=== PATIENT | female | born 1950 | race Caucasian/White ===

== ENCOUNTER → 2017-06-14 | Outpatient (CLI) | payer OTHER ==
--- NOTE | 2017-06-15 07:40 | MAMMOGRAPHY REPORT ---
BILATERAL DIGITAL SCREENING MAMMOGRAM WITH CAD: 06/14/2017 CLINICAL HISTORY: Routine screening. Patient has no complaints. TECHNIQUE: Bilateral CC and MLO views were obtained. Current study was also evaluated with a Compute r Aided Detection (CAD) system. COMPARISON: Comparison is made to exams dated: 06/10/2016 mammogram, 05/21/2015 mammogram, 04/30/2014 ul trasound, 04/30/2014 mammogram, 04/26/2014 mammogram, and 04/25/2013 mammogram - [facility] nter. BREAST COMPOSITION: There are scattered areas of fibroglandular density in both breasts. FINDINGS: There is a 7 mm nodular asymmetry versus mass in the inferior right breast on the MLO view . A 5 mm nodular asymmetry is identified in the lateral right breast on the CC view and it is unclea r if this correlates with the inferior asymmetry seen on the MLO view. Nevertheless, additional spot compression tomosynthesis views and possible ultrasound are recommended. There is possible architec tural distortion in the lateral, middle one third of the left breast, only seen on the CC view. Fredy tional spot compression tomosynthesis views and possible ultrasound are recommended. No other new suspicious mass, focal asymmetry or suspicious microcalcifications are seen bilaterally. IMPRESSION: ACR BI-RADS CATEGORY 0: INCOMPLETE EVALUATION: NEED ADDITIONAL IMAGING EVALUATION The nodular asymmetries in the right breast, and possible architectural distortion in the lateral lef t breast need additional imaging evaluation. The patient will be called to schedule an appointment. Approximately 10% of breast cancers are not detected with mammography. A negative mammographic report should not delay biopsy if a clinically suggestive mass is present. Georgette Jane M.D. ay/:06/14/2017 16:50:09 Casket Assembler Metal: Denisa Santana RT(R)(M), [facility] letter sent: Addl Imaging 0 BI-RADS Code: ACR BI-RADS Category 0: Incomplete Evaluation: Need Additional Imaging Evaluation
== END | disposition home or self-care (01) ==
LOC: C.MAMM 09:44
PROVIDERS: ATTEND Family Medicine
DX: Z12.31 Encounter for screening mammogram for malignant neoplasm of breast (principal); R92.8 Other abnormal and inconclusive findings on diagnostic imaging of breast

== ENCOUNTER → 2017-06-23 | Outpatient (CLI) | payer OTHER ==
--- NOTE | 2017-06-23 12:45 | MAMMOGRAPHY REPORT ---
BILATERAL DIGITAL DIAGNOSTIC MAMMOGRAM TOMOSYNTHESIS: 06/23/2017 CLINICAL HISTORY: 66-year-old woman called back from screening mammography for nodular asymmetries in the right breast and possible architectural distortion in the lateral left breast. TECHNIQUE: Bilateral CC and MLO 2-D and tomosynthesis spot compression views were obtained. COMPARISON: Comparison is made to exams dated: 06/14/2017 mammogram, 06/10/2016 mammogram, 05/21/2015 m ammogram, 04/30/2014 mammogram, 04/26/2014 mammogram, and 04/25/2013 mammogram - [facility] nter. BREAST COMPOSITION: There are scattered areas of fibroglandular density in both breasts. FINDINGS: Circular mole markers have been placed on the right breast prior to spot compression views. The nodular asymmetry in the inferior right breast on the MLO view, and in the lateral right breast on the MLO view corresponding to one of the denoted skin moles. There is no evidence of a suspiciou s mass, architectural distortion or suspicious calcifications in the right breast. The possible architectural distortion in the lateral left breast on the CC view effaces with the supp lemental 2-D and tomosynthesis spot compression view. There is no persistent architectural distortio n, a suspicious mass or suspicious calcifications in the left breast. IMPRESSION: ACR BI-RADS CATEGORY 2: BENIGN The right breast nodular asymmetries correspond to skin moles denoted by circular mole markers, and t here is effacement of the possible distortion in the lateral left breast with the supplemental mammog raphic view and corresponding tomosynthesis images. There is no mammographic evidence of malignancy. Return to annual mammogram screening schedule is recommended, and recommend continuation of tomosynt hesis. The patient has been verbally notified of the results. Approximately 10% of breast cancers are not detected with mammography. A negative mammographic report should not delay biopsy if a clinically suggestive mass is present. Georgette Jane M.D. ay/:06/23/2017 09:36:44 Scrap Shear Operator: Lorna THRASHER)([place]), [facility] letter sent: Normal 1/2 BI-RADS Code: ACR BI-RADS Category 2: Benign
== END | disposition home or self-care (01) ==
LOC: C.MAMM 09:04
PROVIDERS: ATTEND Family Medicine
DX: R92.2 Inconclusive mammogram (principal)